=== PATIENT | male | born 1955 | race Caucasian/White ===

== ENCOUNTER → 2023-02-27 13:41 | Outpatient (CLI) | payer BC, SELFPAY ==
--- NOTE | 2023-02-27 | DI.RAD.S_ITS ---
PROCEDURE: XR HIP W PEL IF DONE LT 2V INDICATIONS: LEFT HIP PAIN TECHNIQUE: 2 views of the hip were acquired. COMPARISON: None. FINDINGS: Bones: No fractures or dislocations. No suspicious bony lesions. The visualized pelvic ring appears intact. Doubtful joint space narrowing with associated osteophytic lipping. Soft tissues: No suspicious soft tissue calcifications or masses. IMPRESSION: Mild left hip osteoarthritis, Kellgren Dev grade 1. Dictated by: Cesar Villarreal M.D. on 02/27/2023 at 16:09 Approved by: Cesar Villarreal M.D. on 02/27/2023 at 16:09
== END ==
PROVIDERS: PCP Family Medicine; Referring Provider Family Medicine; Visit Provider Family Medicine
DX: M16.12 Unilateral primary osteoarthritis, left hip (principal); M25.552 Pain in left hip
CPT/HCPCS: 73502

== ENCOUNTER → 2025-01-04 07:26 | Outpatient (CLI) | payer MEDICARE, SELFPAY ==
--- NOTE | 2025-01-04 18:12 | DI.NM.S_ITS ---
DATE OF SERVICE: 01/04/2025 EXERCISE TREADMILL STRESS TEST PROCEDURE PERFORMED: Exercise treadmill stress test without imaging. ORDERING PROVIDER: Mary Alice Judd M.D. INDICATIONS: The patient is a 68-year-old male with hyperlipidemia, atypical chest discomfort, and dizziness. FINDINGS: 1. The patient was able to exercise for 15 minutes 41 seconds on a standard [place] protocol suggesting extraordinary exercise capacity with an BRITTNY of -101%, achieving 14.8 METS. 2. He had a normal heart rate and blood pressure response to exercise, achieving a maximum heart rate of 149 BPM (98% of his predicted maximum). 3. He had no chest pain or other anginal symptoms. 4. His resting ECG showed sinus rhythm with normal ST segments. There are no obvious ST-segment shifts or arrhythmias with stress although moderate motion artifact reduces a definitive assessment. Yet, early recovery tracings show no concerning abnormalities. IMPRESSION: 1. Normal exercise treadmill stress test for ischemia. 2. Extraordinary exercise capacity without angina or arrhythmias. [place] [facility] - VANESSA/ruth/THOMAS doc#: [id number]/job#: [id number] dd: 01/04/2025 12:59:00 dt: 01/04/2025 18:00:00 DICTATING /COPIES TO: Deepak Coleman MD; Mary Alice Judd M.D. COPIES MNE: JOSE JUAN;
== END ==
PROVIDERS: PCP Family Medicine; Referring Provider Family Medicine; Visit Provider Family Medicine
DX: E11.69 Type 2 diabetes mellitus with other specified complication (principal); R07.89 Other chest pain; E78.5 Hyperlipidemia, unspecified
CPT/HCPCS: 93017